=== PATIENT | female | born 1980 | race Caucasian/White ===

== ENCOUNTER 2017-12-07 08:33 | Emergency (ER) | payer OTHER ==
[2017-12-07] MEDS ORDERED: PREN-127 PO (08:46)
[2017-12-07] MEDS ORDERED: ASPI81TA94 PO (08:46)
--- NOTE | 2017-12-07 08:46 | ER Report ---
History and Physical Time Seen By MD: 08:44 HPI/ROS CHIEF COMPLAINT: Abnormal vaginal bleeding and HISTORY OF PRESENT ILLNESS: 37-year-old female G3 para 1 full term approximately 12 weeks by date comes to the emergency department today with a complaint of waking with vaginal bleeding significant amounts she describes some scant bleeding yesterday with significant bleeding today she said they went in the bathroom on arrival to the emergency Department plastic large clot which she flushed down the toilet patient denies any cramping abdominal pain or discomfort lasted intercourse was several days ago patient denies any additional complaints at this time REVIEW OF SYSTEMS: Respiratory: No cough, no dyspnea. Cardiovascular: No chest pain, no palpitations. Gastrointestinal: No vomiting, no abdominal pain. Musculoskeletal: No back pain. Remainder of the 14 system rev: Yes Allergies: Coded Allergies: No Known Drug Allergies (Unverified , 12/07/17) Home Meds Reported Medications Vits W-Ca,Fe,Fa(<1MG) ( VITAMINS) 1 Each Tablet, 1 EACH PO DAILY, TAB 12/07/17 Aspirin (ASPIRIN) 81 Mg Tab.chew, 81 MG PO QDAY, TAB.CHEW 12/07/17 Reviewed Nurses Notes: Yes Old Medical Records Reviewed: Yes Constitutional Vital Sign - Last 24 Hours 12/07/17 12/07/17 12/07/17 12/07/17 08:35 08:44 08:48 09:00 Temp 98.5 Pulse 102 102 Resp 16 B/P (MAP) 141/91 144/91 (108) 140/86 (104) Pulse Ox 97 96 12/07/17 12/07/17 12/07/17 12/07/17 09:03 09:08 09:15 09:23 Pulse 99 92 B/P (MAP) 117/66 (83) Pulse Ox 96 96 97 12/07/17 12/07/17 12/07/17 12/07/17 09:30 09:38 09:43 09:58 Pulse 93 93 94 B/P (MAP) 127/82 (97) Pulse Ox 97 96 100 12/07/17 12/07/17 10:13 10:28 Pulse 92 Pulse Ox 98 96 Physical Exam General Appearance: The patient is alert, has no immediate need for airway protection and no current signs of toxicity. [ ] Eyes: Pupils equal and round no injection. Respiratory: Chest is non tender, lungs are clear to auscultation. Cardiac: regular rate and rhythm [ ] Gastrointestinal: Abdomen is soft and non tender, no masses, bowel sounds normal. Musculoskeletal: Neck: Neck is supple and non tender. Extremities have full range of motion and are non tender. Skin: No rashes or lesions. Pelvic exam deferred DIFFERENTIAL DIAGNOSIS: After history and physical exam differential diagnosis was considered for threatened AB and spontaneous AB normal vaginal with abnormal bleeding Medical Decision Making Data Points Result Diagram: 12/07/17 0905 12/07/17 0905 Laboratory Hematology Test 12/07/17 09:05 12/07/17 09:25 Red Blood Count 4.57 M/uL (4.17-5.56) Mean Corpuscular Volume 86.7 fL (80.0-96.0) Mean Corpuscular Hemoglobin 30.4 pg (26.0-33.0) Mean Corpuscular Hemoglobin Concent 35.0 g/dL (32.0-36.0) Red Cell Distribution Width 13.4 % (11.5-14.5) Mean Platelet Volume 8.9 fL (7.2-11.1) Neutrophils (%) (Auto) 71.3 % (39.4-72.5) Lymphocytes (%) (Auto) 22.1 % (17.6-49.6) Monocytes (%) (Auto) 5.4 % (4.1-12.4) Eosinophils (%) (Auto) 0.4 % (0.4-6.7) Basophils (%) (Auto) 0.8 % (0.3-1.4) Nucleated RBC Relative Count (auto) 0.1 /100WBC Neutrophils # (Auto) 6.4 K/uL (2.0-7.4) Lymphocytes # (Auto) 2.0 K/uL (1.3-3.6) Monocytes # (Auto) 0.5 K/uL (0.3-1.0) Eosinophils # (Auto) 0.0 K/uL (0.0-0.5) Basophils # (Auto) 0.1 K/uL (0.0-0.1) Nucleated RBC Absolute Count (auto) 0.01 K/uL Prothrombin Time 13.7 seconds (12.0-14.4) Prothromb Time International Ratio 1.05 Activated Partial Thromboplast Time 28 seconds (23-35) Sodium Level 134 mmol/L (137-145) Potassium Level 3.4 mmol/L (3.5-5.0) Chloride Level 103 mmol/L (98-107) Carbon Dioxide Level 21 mmol/L (22-31) Blood Urea Nitrogen 9 mg/dl (7-18) Creatinine 0.50 mg/dl (0.52-1.04) Glomerular Filtration Rate Calc > 60.0 Random Glucose 86 mg/dl (75-110) Calcium Level 8.7 mg/dl (8.4-10.2) Total Bilirubin 0.5 mg/dl (0.2-1.3) Aspartate Amino Transf (AST/SGOT) 14 U/L (0-35) Alanine Aminotransferase (ALT/SGPT) 21 U/L (0-56) Alkaline Phosphatase 55 U/L (0-126) Total Protein 6.6 g/dl (6.3-8.2) Albumin 4.0 g/dl (3.5-5.0) Human Chorionic Gonadotropin, Quant 217839 mIU/ml Urine Color Yellow Urine Clarity Clear Urine pH 7.0 pH (4.8-9.5) Urine Specific [place] 1.010 Urine Protein Negative mg/dL (NEGATIVE) Urine Glucose (UA) Negative mg/dL (NEGATIVE) Urine Ketones Trace mg/dL (NEGATIVE) Urine Blood Large (NEGATIVE) Urine Nitrite Negative (NEGATIVE) Urine Bilirubin Negative (NEGATIVE) Urine Urobilinogen Negative mg/dL (0.2-1.9) Urine Leukocyte Esterase Negative (NEGATIVE) Urine RBC 1 /HPF (0-2/HPF) Urine WBC 1 /HPF (0-5/HPF) Urine Squamous Epithelial Cells Moderate /LPF (</=FEW) Urine Bacteria Negative /HPF (NONE-FEW) Urine Mucus Few /HPF (NONE-FEW) Chemistry Test 12/07/17 09:05 12/07/17 09:25 White Blood Count 9.0 k/uL (4.5-11.0) Red Blood Count 4.57 M/uL (4.17-5.56) Hemoglobin 13.9 g/dL (12.0-16.0) Hematocrit 39.7 % (34.0-47.0) Mean Corpuscular Volume 86.7 fL (80.0-96.0) Mean Corpuscular Hemoglobin 30.4 pg (26.0-33.0) Mean Corpuscular Hemoglobin Concent 35.0 g/dL (32.0-36.0) Red Cell Distribution Width 13.4 % (11.5-14.5) Platelet Count 241 K/uL (150-450) Mean Platelet Volume 8.9 fL (7.2-11.1) Neutrophils (%) (Auto) 71.3 % (39.4-72.5) Lymphocytes (%) (Auto) 22.1 % (17.6-49.6) Monocytes (%) (Auto) 5.4 % (4.1-12.4) Eosinophils (%) (Auto) 0.4 % (0.4-6.7) Basophils (%) (Auto) 0.8 % (0.3-1.4) Nucleated RBC Relative Count (auto) 0.1 /100WBC Neutrophils # (Auto) 6.4 K/uL (2.0-7.4) Lymphocytes # (Auto) 2.0 K/uL (1.3-3.6) Monocytes # (Auto) 0.5 K/uL (0.3-1.0) Eosinophils # (Auto) 0.0 K/uL (0.0-0.5) Basophils # (Auto) 0.1 K/uL (0.0-0.1) Nucleated RBC Absolute Count (auto) 0.01 K/uL Prothrombin Time 13.7 seconds (12.0-14.4) Prothromb Time International Ratio 1.05 Activated Partial Thromboplast Time 28 seconds (23-35) Glomerular Filtration Rate Calc > 60.0 Calcium Level 8.7 mg/dl (8.4-10.2) Total Bilirubin 0.5 mg/dl (0.2-1.3) Aspartate Amino Transf (AST/SGOT) 14 U/L (0-35) Alanine Aminotransferase (ALT/SGPT) 21 U/L (0-56) Alkaline Phosphatase 55 U/L (0-126) Total Protein 6.6 g/dl (6.3-8.2) Albumin 4.0 g/dl (3.5-5.0) Human Chorionic Gonadotropin, Quant 224609 mIU/ml Urine Color Yellow Urine Clarity Clear Urine pH 7.0 pH (4.8-9.5) Urine Specific [place] 1.010 Urine Protein Negative mg/dL (NEGATIVE) Urine Glucose (UA) Negative mg/dL (NEGATIVE) Urine Ketones Trace mg/dL (NEGATIVE) Urine Blood Large (NEGATIVE) Urine Nitrite Negative (NEGATIVE) Urine Bilirubin Negative (NEGATIVE) Urine Urobilinogen Negative mg/dL (0.2-1.9) Urine Leukocyte Esterase Negative (NEGATIVE) Urine RBC 1 /HPF (0-2/HPF) Urine WBC 1 /HPF (0-5/HPF) Urine Squamous Epithelial Cells Moderate /LPF (</=FEW) Urine Bacteria Negative /HPF (NONE-FEW) Urine Mucus Few /HPF (NONE-FEW) Coagulation Test 12/07/17 09:05 Prothrombin Time 13.7 seconds Prothromb Time International Ratio 1.05 Activated Partial Thromboplast Time 28 seconds Urinalysis Test 12/07/17 09:25 Urine Color Yellow Urine Clarity Clear Urine pH 7.0 pH (4.8-9.5) Urine Specific [place] 1.010 Urine Protein Negative mg/dL (NEGATIVE) Urine Glucose (UA) Negative mg/dL (NEGATIVE) Urine Ketones Trace mg/dL (NEGATIVE) Urine Blood Large (NEGATIVE) Urine Nitrite Negative (NEGATIVE) Urine Bilirubin Negative (NEGATIVE) Urine Urobilinogen Negative mg/dL (0.2-1.9) Urine Leukocyte Esterase Negative (NEGATIVE) Urine RBC 1 /HPF (0-2/HPF) Urine WBC 1 /HPF (0-5/HPF) Urine Squamous Epithelial Cells Moderate /LPF (</=FEW) Urine Bacteria Negative /HPF (NONE-FEW) Urine Mucus Few /HPF (NONE-FEW) ED Course/Re-evaluation ED Course ED course medical decision make 29-year-old female with increased bleeding during ultrasound does confirm a viable IUP 2 days past date of reported recent labs performed showed a beta hCG greater than 37,000 patient will be discharged as a threatened AB follow-up with primary care Decision to Disposition Date: Dec 07, 2017 Decision to Disposition Time: 11:00 Depart Departure Latest Vital Signs Vital Signs Date Time Temp Pulse Resp B/P (MAP) Pulse Ox O2 Delivery O2 Flow Rate FiO2 12/07/17 10:28 96 12/07/17 10:13 92 12/07/17 09:30 127/82 (97) 12/07/17 08:35 98.5 16 Impression: Primary Impression: Threatened Condition: Improved Disposition: HOME OR SELF-CARE Patient Instructions: Threatened Miscarriage (DC) NALLELY JAEGER MD Dec 07, 2017 08:46
[2017-12-07 09:14] LABS: PLATELET COUNT, AUTOMATED 241 K/uL (150-450)
[2017-12-07 09:22] LABS: INR 1.05
[2017-12-07 11:09] VITALS: BP 129/83
--- NOTE | 2017-12-07 11:43 | RADIOLOGY IMAGING REPORT ---
FACILITY: [facility] - [place], [place] PATIENT NAME: Sabiha Roger : 1980 MR: [id number] V: [id number] EXAM DATE: ORDERING PHYSICIAN: NALLELY JAEGER TECHNOLOGIST: Location: [facility] - [place] Patient: Sabiha Roger : 1980 Visit/Account:[id number] Date of Sevice: 12/07/2017 EXAMINATION: OB Ultrasound HISTORY: Vaginal bleeding COMPARISON: None FINDINGS: Intrauterine gestations: one heart rate: 167 bpm Satisfactory amount of amniotic fluid. Placenta: Anterior Uterus: Anteverted. Subchorionic hemorrhage: None Maternal adnexa: Left ovary 3.0 x 2.3 x 1.8 cm, containing a 15 mm complicated cyst. Right ovary was not visualized. Cervix: long and closed. [place]-rump length: 5.6 cm; 12 week 2 day Estimated gestational age by LMP of 09/14/2017: 12 week zero day Estimated date of delivery based on LMP is 06/21/2018. Free fluid: None IMPRESSION: Single, live intrauterine gestation with ultrasound age of 12 week 2 day, compatible with LMP dates o f 12 week zero day. Report Dictated By: Blanka Martel MD at 12/07/2017 11:34 AM Report E-Signed By: Blanka Martel MD at 12/07/2017 11:39 AM WSN:[id number]
== END 2017-12-07 11:09 | disposition home or self-care (01) ==
LOC: ER 08:39
DX: O20.0 Threatened abortion (principal); Z3A.12 12 weeks gestation of pregnancy
CPT/HCPCS: 36415; 76817; 81001; 82040; 82247; 82310; 82374; 82435; 82565; 82947; 84075; 84132; 84155; 84295; 84450; 84460; 84520; 84702; 85025; 85610; 85730; 99283